=== PATIENT | male | born 1965 | race Caucasian/White ===

== ENCOUNTER → 2018-10-04 | Outpatient (CLI) | payer OTHER | END | disposition home or self-care (01) | LOC: CFH 07:52 | PROVIDERS: ATTEND Nurse Practitioner Family | DX: E04.9 Nontoxic goiter, unspecified (principal); R63.4 Abnormal weight loss | CPT/HCPCS: 76536 ==

== ENCOUNTER 2018-10-18 13:32 | Outpatient (CLI) | payer OTHER ==
[2018-10-18] MEDS ORDERED: LIDOCAINE-MPF 1%, 5ML ONE (13:38)
== END 2018-10-18 23:59 | disposition home or self-care (01) ==
LOC: RAD 13:32
PROVIDERS: ATTEND Nurse Practitioner Family
DX: E04.1 Nontoxic single thyroid nodule (principal)
CPT/HCPCS: 10005; 76942; 88173